=== PATIENT | male | born 1975 | race Caucasian/White ===

== ENCOUNTER 2023-06-30 00:03 | Emergency (ER) | payer OTHER ==
[~2023-06-30] VITALS: Ht 190.5 cm; Wt 113.4 kg
[2023-06-30 00:33] VITALS: BP 170/98; TEMP 98.4; O2SAT 94
[2023-06-30] MEDS ORDERED: SULF1TAB48 PO ×2 (00:38→01:26)
[2023-06-30] MEDS ORDERED: SULFAMETH/TRIMETH 800/160 MG 1 UDTAB TABLET ONE (00:44)
[2023-06-30] MEDS ORDERED: SULFAMETH/TRIMETH 800/160 MG 1 UDTAB TABLET PO ONE (01:00)
== END 2023-06-30 01:26 | disposition home or self-care (01) ==
LOC: ER 00:07
DX: L03.114 Cellulitis of left upper limb (principal); L03.113 Cellulitis of right upper limb; F17.200 Nicotine dependence, unspecified, uncomplicated; Z79.899 Other long term (current) drug therapy